=== PATIENT | female | born 1970 | race Caucasian/White ===

== ENCOUNTER 2024-12-13 21:44 | Emergency (ER) | payer OTHER, SELFPAY ==
[2024-12-13 21:46] VITALS: BP 172/96
--- NOTE | 2024-12-13 21:46 | ED.GENMED ---
Addendum entered and electronically signed by Luis Rogers DO 12/14/24 06:09:
Update, patient feeling better abdomen soft and nontender
Original Note:
ED Provider Triage
<Sly Vasquez PA-C - Last Filed: 12/13/24 21:47>
-
Patient seen by provider in Triage?: Seen in Triage
Attestation: A medical screening examination has been initiated by a qualified medical provider. Based on the assessment performed at this time, it has been determined that an emergent medical condition may exist and the patient has been informed
that further medical evaluation and possible additional diagnostic testing may be needed.
HPI: 54-year-old female presenting the ER with persistent nausea vomiting and diarrhea since early this morning. Having a hard time tolerating p.o. Feeling generally fatigued and tired. No fevers. Labs and Zofran ordered.
GENERAL: Alert , in no apparent distress
EYE: No visual abnormalities.
NECK: Trachea midline
ENT: No visible abnormalities.
LUNGS: No acute respiratory distress
NEUROLOGICAL: Alert and oriented
SKIN: Skin intact. No visible changes.
MUSCULOSKELETAL: Moving extremities normally
PSYCH: Normal and appropriate interaction.
This is a medical evaluation conducted in person to initiate diagnostic evaluation and provide initial therapeutics. Please see further documentation by the treating clinician.
History of Present Illness
<Sly Vasquez PA-C - Last Filed: 12/13/24 21:47>
General
Chief Complaint: Abdominal Symptoms
Time Seen by Provider: 12/14/24 04:28
<Luis Rogers DO - Last Filed: 12/14/24 06:07>
General
Source: patient
Exam Limitations: none
Nursing documentation reviewed up to this point in time: agreed with
History of Present Illness
History of Present Illness:
Agree with triage PA history, summary 54-year-old female nausea vomiting diarrhea did have some oysters recently believes she may have norovirus, felt warm fevers but notes feeling better after fluids and Zofran
Past History
<Sly Vasquez PA-C - Last Filed: 12/13/24 21:47>
Past History
ED Past Medical History: None
ED Past Surgical History: Tonsilectomy
Social History
Tobacco: Non-smoker
Personal:
Living: with family
Phy Exam
<Luis Rogers DO - Last Filed: 12/14/24 06:07>
Physical Exam
Physical Exam:
Physical Exam
General: no apparent distress, not acutely ill
Neck: No jaundice
Heart: s1/s2 regular rate and rhythm, no murmur. equal radial pulses.
Lungs: no acute respiratory distress. clear bilaterally
Abdomen: Soft mild diffuse tenderness
Neuro: alert and oriented. no focal neurological deficits
Skin: no rash
Psychiatric: well kept. interactive and cooperative
Extremities: no edema. no calf tenderness.
Course
<Sly Vasquez PA-C - Last Filed: 12/13/24 21:47>
Orders/Labs/Results
Orders:
Orders
12/13/24 21:46
Ondansetron Orally Disint [Zofran Odt (Orally Disintegrating)] 4 mg PO NOW STA
12/13/24 21:51
Ondansetron Orally Disint [Zofran Odt (Orally Disintegrating)] 4 mg .ROUTE .[facility]
12/13/24 21:54
Complete Blood Count/With Diff Urgent
Comprehensive Metabolic Panel Urgent
Lipase Urgent
12/14/24 04:31
0.9% Sodium Chloride 1000 ml [Nss] 1,000 ml IV BOLUS
Abnormal Lab Results
12/13/24
21:54
WBC 14.3 H 10^3/uL
(4.8-10.8)
Abs Immat Gran (auto) 0.1 H 10^3/uL
(0-0.05)
Absolute Neuts (auto) 13.4 H 10^3/uL
(1.4-6.5)
Absolute Lymphs (auto) 0.4 L 10^3/uL
(1.2-3.4)
Neutrophils % 93.5 H %
(42.2-75.2)
Lymphocytes % 2.4 L %
(20.5-51.1)
Glucose 133 H mg/dl
(70-99)
ALT 38 H U/L
(0-35)
Albumin 5.1 H g/dl
(3.5-5.0)
12/13/24 21:54
12/13/24 21:54
Vital Signs
Initial and Last Documented VS:
Initial Vital Signs
Temp Pulse Resp BP Pulse Ox
98.3 F 114 22 172/96 97
12/13/24 21:46 12/13/24 21:46 12/13/24 21:46 12/13/24 21:46 12/13/24 21:46
Last Documented Vital Signs
Temp Pulse Resp BP Pulse Ox
98.1 F 89 16 114/52 99
12/14/24 04:21 12/14/24 04:21 12/14/24 04:21 12/14/24 05:00 12/14/24 05:45
<Luis Rogers, DO - Last Filed: 12/14/24 06:07>
Orders/Labs/Results
Orders:
Orders
12/13/24 21:46
Ondansetron Orally Disint [Zofran Odt (Orally Disintegrating)] 4 mg PO NOW STA
12/13/24 21:51
Ondansetron Orally Disint [Zofran Odt (Orally Disintegrating)] 4 mg .ROUTE .[facility]
12/13/24 21:54
Complete Blood Count/With Diff Urgent
Comprehensive Metabolic Panel Urgent
Lipase Urgent
12/14/24 04:31
0.9% Sodium Chloride 1000 ml [Nss] 1,000 ml IV BOLUS
Abnormal Lab Results
12/13/24
21:54
WBC 14.3 H 10^3/uL
(4.8-10.8)
Abs Immat Gran (auto) 0.1 H 10^3/uL
(0-0.05)
Absolute Neuts (auto) 13.4 H 10^3/uL
(1.4-6.5)
Absolute Lymphs (auto) 0.4 L 10^3/uL
(1.2-3.4)
Neutrophils % 93.5 H %
(42.2-75.2)
Lymphocytes % 2.4 L %
(20.5-51.1)
Glucose 133 H mg/dl
(70-99)
ALT 38 H U/L
(0-35)
Albumin 5.1 H g/dl
(3.5-5.0)
12/13/24 21:54
12/13/24 21:54
Vital Signs
Initial and Last Documented VS:
Initial Vital Signs
Temp Pulse Resp BP Pulse Ox
98.3 F 114 22 172/96 97
12/13/24 21:46 12/13/24 21:46 12/13/24 21:46 12/13/24 21:46 12/13/24 21:46
Last Documented Vital Signs
Temp Pulse Resp BP Pulse Ox
98.1 F 89 16 114/52 99
12/14/24 04:21 12/14/24 04:21 12/14/24 04:21 12/14/24 05:00 12/14/24 05:45
nancy;Luis Rogers, DO - Last Filed: 12/14/24 06:07>
MDM/Problems Addressed
Differential Diagnosis Includes:
Enteritis Food poisoning norovirus doubt obstruction
MDM/Problems Addressed:
Nausea vomiting diarrhea
<Luis Rogers, DO - Last Filed: 12/14/24 06:07>
*Critical Care Note
Total Time (30-74mins, 75-104mins- exclusive of procedures): Not Applicable
<Luis Rogers, DO - Last Filed: 12/14/24 06:07>
Update Note
Update Note:
5 AM patient feeling better, tolerating ice chips
ED Attending Note
<Sly Vasquez PA-C - Last Filed: 12/13/24 21:47>
-
Portions of this chart may have been created with voice recognition software.� Occasional wrong word or��sound alike� substitutions may have occurred due to the inherent limitations of voice recognition software.
Discharge Plan
Departure
Patient Disposition: Home (Routine Discharge)
Date of Disposition: 12/14/24
Time of Disposition: 05:37
Patient with high blood pressure during this ER visit?: No
Condition: Good
Covid-19: Not Applicable
Discharge Problem:
Vomiting, Diarrhea
Instructions: Dehydration, Adult (DC), [place] Diet, Nausea and Vomiting, Adult (DC), Abdominal Pain
Prescriptions:
New
ondansetron 4 mg tablet,disintegrating
4 mg PO Q8H Qty: 10 0RF
loperamide [Imodium A-D] 2 mg capsule
2 mg PO Q6H PRN (Reason: loose stool) Qty: 10 0RF
No Action
cetirizine 10 MG tablet
10 mg PO DAILY
montelukast 10 MG tablet
10 mg PO DAILY
ondansetron HCl 4 MG tablet
4 mg PO TIDPRN PRN (Reason: nausea) Qty: 10 0RF
cyclobenzaprine 10 MG tablet
10 mg PO TIDPRN PRN (Reason: muscle tightness/spasm) Qty: 30 0RF
Referrals:
Domitila Cary CRNP [Family Provider] - Next open appointment
Activity Restrictions/Additional Instructions:
Return to the ER for worsening symptoms or any other concerns
Interventions
Interventions:
*Risk Screen - Suicide Last Done: 12/13/24 21:46
*General Assessment Last Done: 12/14/24 04:21
*Neglect/Abuse Screening Last Done: 12/13/24 21:46
ED- Fall Risk Assessment Last Done: 12/14/24 04:40
*ED COVID-19 Vaccine History Last Done: 12/14/24 04:21
YX-Ixjitw-Blxytlqkxy Assessment Last Done: 12/14/24 04:40
Discharge Date and Time
Print Language: PALESTINIAN
[2024-12-13] MEDS: ZOFRAN ODT (ORALLY DISINTEGRATING) 4 MG PO (21:53)
[2024-12-13 22:01] LABS: % Basophils 0.2 % (0-2); % Eosinophils 0.3 % (0-6); % Immature Granulocytes 0.4 % (0-0.5); % Lymphocytes 2.4 % (20.5-51.1); % Monocytes 3.2 % (1.7-9.3); % Neutrophils 93.5 % (42.2-75.2); Absolute Immature Granulocytes 0.1 10^3/uL (0-0.05); Absolute Lymphocytes 0.4 10^3/uL (1.2-3.4); Absolute Monocytes 0.5 10^3/uL (0.1-0.6); Absolute Neutrophils 13.4 10^3/uL (1.4-6.5); Hematocrit 41.2 % (37.0-47.0); Hemoglobin 14.2 g/dL (12.0-16.0); Mean Corp Hgb Conc. 34.5 g/dL (33.0-37.0); Mean Corpuscular Hgb 29.6 pg (27.0-31.0); Mean Platelet Volume 9.1 fL (7.4-10.4); Nucleated Red Blood Cells % 0 %; Platelet Count 389 10^3/uL (130-400); Red Blood Cell Count 4.79 10^6/uL (4.20-5.40); Red Cell Dist. Width 13.1 % (11.5-14.5); White Blood Cell Count 14.3 10^3/uL (4.8-10.8)
[2024-12-13 22:13] LABS: ALT (SGPT) 38 U/L (0-35); AST (SGOT) 30 U/L (14-36); Albumin 5.1 g/dl (3.5-5.0); Alkaline Phosphatase 69 U/L (38-126); Blood Urea Nitrogen 16 mg/dl (7-17); Calcium 9.4 mg/dl (8.4-10.2); Carbon Dioxide 25 mmol/L (22-30); Chloride 101 mmol/L (98-107); Glucose 133 mg/dl (70-99); Lipase 89 U/L (23-300); Potassium 4.3 mmol/L (3.5-5.1); Sodium 139 mmol/L (135-145); Total Bilirubin 0.7 mg/dl (0.2-1.3); Total Protein 7.8 g/dl (6.3-8.2); eGFR > 60.00
[2024-12-14 01:05] VITALS: BP 140/88
[2024-12-14 04:21] VITALS: BP 144/68; BMI 33.8
[2024-12-14 04:29] VITALS: BP 144/68
[2024-12-14] MEDS: NSS 1000 IV (04:31)
--- NOTE | 2024-12-14 04:33 | EDRN ---
Patient into room and updated on lab work, IV and fluids started, patient has not thrown up since she has been here.
[2024-12-14 05:00] VITALS: BP 114/52
== END 2024-12-14 06:51 | disposition home or self-care (01) ==
LOC: EMR 21:44
PROVIDERS: Physician Assistant Medical; EMERGENCY PHYSICIAN Emergency Medicine; FAMILY PHYSICIAN Nurse Practitioner Family
DX: R11.2 Nausea with vomiting, unspecified (principal); R19.7 Diarrhea, unspecified
CPT/HCPCS: 99284; 96360; 80053; 83690; 85025